=== PATIENT | female | born 1930 | race Caucasian/White ===

== ENCOUNTER 2018-12-22 19:37 | Emergency (ER) | payer MEDICARE, BC ==
[~2018-12-22] VITALS: Ht 157.5 cm; Wt 56.7 kg
[~2018-12-22 19:37] MED LIST: ASPIRIN325 PO; CIPRO500 MG PO; LIPITOR 20 MG T20 M1 PO; LISINOPRIL20 MG PO; TOPROL XL25 MG PO
[2018-12-22 20:12] LABS: ABSOLUTE BASOPHILS 0.1 thou/uL (0.0-0.2); ABSOLUTE EOSINOPHILS 0.1 thou/uL (0.0-0.7); ABSOLUTE LYMPHOCYTES 2.1 thou/uL (0.8-5.3); ABSOLUTE MONOCYTES 0.5 thou/uL (0.0-1.2); ABSOLUTE NEUTROPHILS 3.3 thou/uL (1.6-8.1); BASOPHILS 1.1 %; EOSINOPHILS 1.8 %; HEMOGLOBIN 12.7 gm/dL (12.0-15.0); LYMPHOCYTES 34.3 %; MCH 30.6 pg (26.0-34.0); MCHC 33.3 g/dL (28.0-37.0); MCV 91.8 fL (80.0-100.0); MONOCYTES 8.5 %; MPV 8.4 fl. (7.2-11.1); NUCLEATED RBCS 0 /100WBC; PLATELET COUNT* 247 thou/uL (150-400); POLYS 54.3 %; RBC 4.14 mil/uL (4.20-5.00); RDW-CV 13.2 % (10.5-14.5); WBC 6.2 thou/uL (4.0-11.0)
[2018-12-22 20:24] LABS: CALCIUM 9.2 mg/dL (8.5-10.1); CREATININE 0.8 mg/dL (0.6-1.3); POTASSIUM 3.8 mmol/L (3.5-5.1)
[2018-12-22 20:29] LABS: ALBUMIN 3.5 g/dL (3.4-5.0); TOTAL BILIRUBIN 0.3 mg/dL (<0.1-1.0); TOTAL PROTEIN 6.9 g/dL (6.4-8.2)
[2018-12-22 20:36] LABS: URINE BILIRUBIN NEGATIVE (Negative); URINE BLOOD NEGATIVE (Negative); URINE CLARITY CLEAR; URINE COLOR YELLOW; URINE GLUCOSE-RANDOM NEGATIVE (Negative); URINE KETONES NEGATIVE (Negative); URINE LEUKOCYTES-REFLEX TRACE (Negative); URINE NITRITE-REFLEX NEGATIVE (Negative); URINE PROTEIN NEGATIVE (Negative); URINE UROBILINOGEN 0.2 E.U./dl (0.2-1.0)
[2018-12-22 20:39] LABS: BACTERIA-REFLEX None Seen /HPF (None Seen); CASTS None Seen /LPF (None Seen); CRYSTALS None Seen /LPF (None Seen); SQUAMOUS 4-10 Moderate /LPF (0-3); URINE RBC None Seen /HPF (0-2); URINE WBC-REFLEX 0-5 Rare /HPF (0-5)
[2018-12-22 23:49] VITALS: BP 143/72
--- NOTE | 2018-12-23 12:53 | EKG ---
[place] [address] ELECTROCARDIOGRAM REPORT Name: LISA LEYVA [id number] Admission: 12/22/18 Attend Phys: Discharge: 12/22/18 Date of : 34 Report #: [id number] THIS REPORT FOR: //name// [facility] ED Test Date: 2018-12-22 Test Time: 19:48:46 Pat Name: LISA LEYVA Department: Room: Gender: F [employer] Dispatcher: YARED : 1930 Requested By: Candida Min Order Number: [id number] MD: Salvador Holt Measurements Intervals [place] Rate: 72 P: PA: QRS: 78 QRSD: 96 T: 22 QT: 400 QTc: 438 Interpretive Statements Atrial fibrillation Low voltage, precordial leads Nonspecific repol abnormality, diffuse leads Compared to ECG 01/17/2016 21:35:56 Low QRS voltage now present Early repolarization now present Electronically Signed On 12-23-2018 12:53:06 CDT by Salvador Holt [email or web address] <ELECTRONICALLY SIGNED> By: Salvador Holt MD, FAC 12/23/18 1253 [id number] 47 Salvador Holt MD, [facility] /EPI
== END 2018-12-22 23:50 | disposition home or self-care (01) ==
LOC: M.ERS 19:37
PROVIDERS: Emergency Medicine
DX: R51 Headache (principal); M25.521 Pain in right elbow; I10 Essential (primary) hypertension; E78.5 Hyperlipidemia, unspecified; F03.90 Unspecified dementia, unspecified severity, without behavioral disturbance, psychotic disturbance, mood disturbance, and anxiety; W18.2XXA Fall in (into) shower or empty bathtub, initial encounter; Y93.89 Activity, other specified; Y92.89 Other specified places as the place of occurrence of the external cause; Y99.8 Other external cause status

== ENCOUNTER 2019-01-21 14:20 | Emergency (ER) | payer MEDICARE, BC ==
[~2019-01-21] VITALS: Ht 160 cm; Wt 63.0 kg
[2019-01-21] MEDS ORDERED: ARTHRICREAM85 GM TOP (14:46)
[2019-01-21] MEDS ORDERED: TYLENOL325 MG PO (14:46)
[2019-01-21] MEDS ORDERED: ASPERCREME1 EACH TOP (14:47)
[2019-01-21] MEDS ORDERED: ZANAFLEX2 MG PO (14:47)
[2019-01-21 15:19] LABS: URINE BILIRUBIN NEGATIVE (Negative); URINE BLOOD NEGATIVE (Negative); URINE CLARITY CLEAR; URINE COLOR YELLOW; URINE GLUCOSE-RANDOM NEGATIVE (Negative); URINE KETONES NEGATIVE (Negative); URINE LEUKOCYTES-REFLEX 1+ (Negative); URINE NITRITE-REFLEX NEGATIVE (Negative); URINE PROTEIN NEGATIVE (Negative)
[2019-01-21 15:28] LABS: ABSOLUTE BASOPHILS 0.1 thou/uL (0.0-0.2); ABSOLUTE LYMPHOCYTES 1.7 thou/uL (0.8-5.3); ABSOLUTE MONOCYTES 0.5 thou/uL (0.0-1.2); BASOPHILS 0.9 %; EOSINOPHILS 0.5 %; HEMATOCRIT 36.6 % (37.0-47.0); HEMOGLOBIN 12.4 gm/dL (12.0-15.0); LYMPHOCYTES 26.4 %; MCH 30.9 pg (26.0-34.0); MCHC 33.9 g/dL (28.0-37.0); MCV 91.1 fL (80.0-100.0); MONOCYTES 7.8 %; MPV 8.3 fl. (7.2-11.1); NUCLEATED RBCS 0 /100WBC; PLATELET COUNT* 344 thou/uL (150-400); POLYS 64.4 %; RBC 4.02 mil/uL (4.20-5.00); RDW-CV 13.2 % (10.5-14.5); WBC 6.3 thou/uL (4.0-11.0)
[2019-01-21 15:35] LABS: CASTS None Seen /LPF (None Seen); CRYSTALS None Seen /LPF (None Seen); SQUAMOUS 4-10 Moderate /LPF (0-3); URINE RBC 0-2 Rare /HPF (0-2); URINE WBC-REFLEX 6-15 Few /HPF (0-5)
[2019-01-21 15:43] LABS: CALCIUM 9.1 mg/dL (8.5-10.1); CREATININE 0.8 mg/dL (0.6-1.3); POTASSIUM 3.8 mmol/L (3.5-5.1)
[2019-01-21 15:52] LABS: ALBUMIN 3.6 g/dL (3.4-5.0); TOTAL BILIRUBIN 0.4 mg/dL (<0.1-1.0); TOTAL PROTEIN 7.3 g/dL (6.4-8.2)
[2019-01-21] MEDS ORDERED: KEFLEX500 M1 PO (16:13)
[2019-01-21 16:48] VITALS: BP 134/71
== END 2019-01-21 16:49 | disposition home or self-care (01) ==
LOC: M.ERS 14:20
PROVIDERS: Personal Emergency Response Attendant
DX: N39.0 Urinary tract infection, site not specified (principal); I10 Essential (primary) hypertension; F03.90 Unspecified dementia, unspecified severity, without behavioral disturbance, psychotic disturbance, mood disturbance, and anxiety; E78.5 Hyperlipidemia, unspecified; I25.10 Atherosclerotic heart disease of native coronary artery without angina pectoris

== ENCOUNTER 2019-06-03 14:55 | Emergency (ER) | payer MEDICARE, BC ==
[~2019-06-03] VITALS: Ht 152.4 cm; Wt 63.5 kg
[~2019-06-03 14:55] MED LIST changes: +ARTHRICREAM85 GM TOP; +ASPERCREME1 EACH TOP; +KEFLEX500 M1 PO; +TYLENOL325 MG PO; +ZANAFLEX2 MG PO
[2019-06-03] MEDS ORDERED: PROAIR HFA8.5 GM INH (15:08)
[2019-06-03] MEDS ORDERED: QUETIAPINE FUMA25 MG PO (15:08)
[2019-06-03] MEDS ORDERED: AUGMENTIN 875-1 EACH PO (15:08)
[2019-06-03] MEDS ORDERED: RAYOS5 MG PO (15:09)
[2019-06-03 15:26] LABS: ABSOLUTE BASOPHILS 0.1 thou/uL (0.0-0.2); ABSOLUTE EOSINOPHILS 0.2 thou/uL (0.0-0.7); ABSOLUTE LYMPHOCYTES 2.5 thou/uL (0.8-5.3); ABSOLUTE MONOCYTES 0.8 thou/uL (0.0-1.2); ABSOLUTE NEUTROPHILS 6.1 thou/uL (1.6-8.1); BASOPHILS 0.6 %; EOSINOPHILS 1.8 %; HEMATOCRIT 37.5 % (37.0-47.0); HEMOGLOBIN 12.8 gm/dL (12.0-15.0); LYMPHOCYTES 26.2 %; MCHC 34.2 g/dL (28.0-37.0); MCV 93.6 fL (80.0-100.0); MPV 8.4 fl. (7.2-11.1); NUCLEATED RBCS 0 /100WBC; PLATELET COUNT* 311 thou/uL (150-400); POLYS 63.4 %; RBC 4.01 mil/uL (4.20-5.00); RDW-CV 13.7 % (10.5-14.5); WBC 9.6 thou/uL (4.0-11.0)
[2019-06-03 15:35] LABS: CALCIUM 9.1 mg/dL (8.5-10.1); POTASSIUM 3.4 mmol/L (3.5-5.1)
[2019-06-03 15:48] LABS: ALBUMIN 3.3 g/dL (3.4-5.0); TOTAL BILIRUBIN 0.4 mg/dL (<0.1-1.0); TOTAL PROTEIN 7.2 g/dL (6.4-8.2)
[2019-06-03 16:06] LABS: BE -0.4 mmol/L (-2 to +3); PCO2 33.5 mmHg (35.0-45.0); PO2 73.5 mmHg (75.0-100.0); pH 7.453 (7.340-7.450)
[2019-06-03] MEDS ORDERED: IPRAT-ALBUT 0.5-3 ML INH (16:52)
[2019-06-03] MEDS ORDERED: NEBULIZER MISCELL (16:52)
[2019-06-03 17:05] LABS: URINE BILIRUBIN NEGATIVE (Negative); URINE BLOOD TRACE (Negative); URINE CLARITY CLOUDY; URINE COLOR YELLOW; URINE GLUCOSE-RANDOM NEGATIVE (Negative); URINE KETONES TRACE (Negative); URINE LEUKOCYTES-REFLEX 1+ (Negative); URINE NITRITE-REFLEX NEGATIVE (Negative); URINE PROTEIN NEGATIVE (Negative); URINE UROBILINOGEN 0.2 E.U./dl (0.2-1.0)
[2019-06-03 17:09] VITALS: BP 121/67
[2019-06-03 17:22] LABS: SQUAMOUS >10 Many /LPF (0-3)
[2019-06-03 17:26] LABS: URINE WBC-REFLEX 0-5 Rare /HPF (0-5)
[2019-06-03 17:27] LABS: MUCUS >6 Heavy strn/LPF (None Seen); URINE RBC 0-2 Rare /HPF (0-2)
[2019-06-03 17:31] LABS: CASTS None Seen /LPF (None Seen); TRANSITIONAL EPITHEL CELL 4-10 Moderate /LPF (None Seen)
[2019-06-03 17:33] LABS: CRYSTALS None Seen /LPF (None Seen)
--- NOTE | 2019-06-04 11:12 | EKG ---
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
== END 2019-06-03 17:10 | disposition home or self-care (01) ==
LOC: M.ERS 14:55
PROVIDERS: Personal Emergency Response Attendant
DX: J20.9 Acute bronchitis, unspecified (principal); I10 Essential (primary) hypertension; I25.10 Atherosclerotic heart disease of native coronary artery without angina pectoris; E78.5 Hyperlipidemia, unspecified; F03.90 Unspecified dementia, unspecified severity, without behavioral disturbance, psychotic disturbance, mood disturbance, and anxiety